=== PATIENT | female | born 1975 | race Caucasian/White ===

== ENCOUNTER 2021-04-03 02:20 | Emergency (ER) | payer SELFPAY ==
[~2021-04-03] VITALS: Ht 175.3 cm; Wt 75.0 kg
--- NOTE | 2021-04-03 03:13 | NUR ---
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 TO ROOM FROM WALL WITH ALEXANDER AT THIS TIME.
[2021-04-03 03:31] LABS: BASOPHILS % (AUTO) 1 % (0-1); EOSINOPHILS % (AUTO) 5 % (1-7); LYMPHOCYTES % (AUTO) 37 % (22-44); MEAN CORPUSCULAR HEMOGLOBIN 34.1 pg (27.0-34.8); MEAN PLATELET VOLUME 7.7 fL (7.4-10.4); MONOCYTES % (AUTO) 6 % (2-9); NEUTROPHILS % (AUTO) 51 % (42-75); PLATELET COUNT 333 x10^3/uL (130-400); RED BLOOD COUNT 4.68 x10^6/uL (3.82-5.3); RED CELL DISTRIBUTION WIDTH 12.5 % (9.6-15.2)
[2021-04-03 03:42] LABS: ALANINE AMINOTRANSFERASE 28 U/L (12-78); ALBUMIN 4.1 g/dL (3.4-5.0); ANION GAP 4 mmol/L (5-15); CALCIUM 8.9 mg/dL (8.5-10.1); CHLORIDE 110 mmol/L (98-107); CREATININE 0.83 mg/dL (0.55-1.02); SALICYLATE LEVEL 5.6 mg/dL (2.8-20.0)
[2021-04-03 03:53] LABS: ALKALINE PHOSPHATASE 72 U/L (45-117); BILIRUBIN,TOTAL 0.2 mg/dL (0.2-1.0); TOTAL PROTEIN 8.3 g/dL (6.4-8.2)
[2021-04-03] MEDS ORDERED: HYDR50TA99 PO (04:05)
[2021-04-03] MEDS ORDERED: DULO30CA2 PO (04:05)
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
--- NOTE | 2021-04-03 04:11 | NUR ---
Patient is resting comfortably in bed. Bed in lowest, rails engaged, call light on lap. Vital Signs within normal limits. WCTM.
[2021-04-03 04:27] LABS: AMPHETAMINE SCREEN, URINE Negative (Negative); BARBITURATE SCREEN, URINE Negative (Negative); BENZODIAZEPINE SCREEN, URINE Negative (Negative); CANNABINOID SCREEN, URINE Negative (Negative); COCAINE SCREEN, URINE Negative (Negative); METHADONE SCREEN, URINE Negative (Negative); OPIATE SCREEN, URINE Negative (Negative)
--- NOTE | 2021-04-03 04:40 | NUR ---
Patient/Caregiver given discharge instructions and they have confirmed that they understand the instructions. Patient ambulatory with steady gait. NAD, all questions answered appropriately, denies additional needs at this time. No personal belongings left in room after discharge. ETOH REFERRALS GIVEN TO PT.
--- NOTE | 2021-04-03 04:41 | NUR ---
MEDICAL DRIVER SAID NO NEED FOR UA
--- NOTE | 2021-04-03 04:56 | NUR ---
Patient is resting comfortably in bed. Bed in lowest, rails engaged, call light on lap. Vital Signs within normal limits. WCTM.
[2021-04-03] MEDS ORDERED: THIAMINE 100MG TABLET PO ONE (06:00)
--- NOTE | 2021-04-03 06:36 | NUR ---
Patient is sleeping comfortably in bed. Eyes closed. Bed in lowest, rails engaged, call light on lap. Vital Signs within normal limits. WCTM. sitter outside room for safety monitoring. Garage doors secured. nadn. pt condition unchanged. SI food tray ordered.
--- NOTE | 2021-04-03 07:14 | NUR ---
GAVE REPORT TO CHERY. TRANSFER OF CARE
--- NOTE | 2021-04-03 09:00 | NUR ---
REPORT RC'VD FROM CHERY MALDONADO. PT RESTING QUIETLY IN [facility], AWAKENS EASILY. SITTER OUTSIDE ROOM AT ALL TIMES.
--- NOTE | 2021-04-03 10:40 | NUR ---
PT HAS BEEN RESTING ALL MORNING, AWAKENS EASILY. BREATHALYZER DONE, WAS UNDER 0.08. PSYCH NETWORK SYSTEMS INTEGRATOR IN TO SPEAK WITH PT NOW.
--- NOTE | 2021-04-03 11:08 | NUR ---
PT NOTIFIED BY PSYCH GAETANO THAT SHE CAN TAKE A CAB TO [facility] FROM THE ER.
[2021-04-03 11:17] VITALS: BP 122/65
--- NOTE | 2021-04-03 11:19 | NUR ---
ALL BELONGINGS RETURNED TO PT. PT GETTING DRESSED NOW.
--- NOTE | 2021-04-03 11:34 | NUR ---
D/C INSTRUCTIONS RV'WD WITH PT. COPIES OF PT'S PRIOR MEDICAL RECORDS RETURNED TO HER. CAB VOUCHER PROVIDED TO PT SO SHE MAY GO DIRECTLY TO [facility]. PT A&OX4, CALM, COOPERATIVE. AMBULATED OUT OF ED WITHOUT DIFFICULTY.
== END 2021-04-03 11:39 | disposition home or self-care (01) ==
LOC: ED 06:04 → EDIP 06:19 → UNDOADMOB 06:19 → ED 11:33
DX: R45.851 Suicidal ideations (principal); F32.9 Major depressive disorder, single episode, unspecified; F10.129 Alcohol abuse with intoxication, unspecified; F17.210 Nicotine dependence, cigarettes, uncomplicated; Y90.0 Blood alcohol level of less than 20 mg/100 ml
CPT/HCPCS: 36415; 80053; 80299; 80307; 80320; 80329; 84443; 84703; 85025; 99284; G0480